=== PATIENT | female | born 1985 | race Caucasian/White ===

== ENCOUNTER 2017-01-03 12:18 | Observation (INO) ==
[~2017-01-03 12:18] MED LIST: LIDOCAINE 2% 5 ML VIAL ONE; PROPOFOL 200 MG/20 ML VIAL IV ONE
[2017-01-03] MEDS ORDERED: HYDROmorphone 2 MG/1 ML VIAL ONE (12:29)
[2017-01-03] MEDS ORDERED: ONDANSETRON 4 MG/2 ML VIAL ONE ×2 (12:29→13:18)
[2017-01-03] MEDS ORDERED: HYDROmorphone 2 MG/1 ML VIAL IV STA (12:32)
[2017-01-03] MEDS ORDERED: ONDANSETRON 4 MG/2 ML VIAL IV STA ×2 (12:32→13:36)
--- NOTE | 2017-01-03 12:35 | Emergency Department Note ---
Josse Gray Brittany, am scribing for, and in the presence of, Giana Rendon DO 12:33. Justice Gray Debra, DO, personally performed the services described in this documentation, ascribed by Teresita Loaiza in my presence, and it is both accurate and complete . Arrival - Arrival Chief Complaint: Extremity Injury Stated Complaint: left ankle injury ED Nursing Triage Note: C/o left ankle pain-onset appx 45 mins earlier. Slipped while walking to the [facility]. Obvious deformity noted to left ankle. Faint pulse palpated. 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 Patient reports that she was heading down a hill to get into the [facility] when she slipped in some mud, injuring her left ankle. Patient states that she has felt some numbness and noticed some cyanosis to the left foot while riding in the car en route to the ED. In room patient has pink color with mild ecchymosis to the left foot, faint pulses palpated, good capillary refill, tender to palpation, and has some obvious swelling. Patient has no other complaint/pain in the ED. Date of Last Menstrual Period: Mirena Allergies/Adverse Reactions: Allergies Allergy/AdvReac Type Severity Reaction Status Date / Time Penicillins Allergy Unknown/Unable Unverified 01/03/17 12:23 to obtain Home Medications: Home Medications Medication Instructions Recorded Confirmed Type No Known Home Medications [No 01/03/17 01/03/17 History Known Home Medications] Review of System - Review of System 12 point system: reviewed and no additional remarkable complaints except as stated - Review of System Musculoskeletal: Present: as per HPI, joint swelling, leg pain Medical,Surgical,& Family Hx - Social History Smoking Status: Never smoker Frequency of Alcohol Use: None Type of Drug Use: None Exam Vital Signs: Vital Signs Temperature 98.2 F 01/03/17 12:19 Pulse Rate 104 H 01/03/17 12:19 Respiratory Rate 18 01/03/17 12:19 Blood Pressure 141/82 01/03/17 12:19 O2 Sat by Pulse Oximetry 99 01/03/17 12:19 - General General appearance: alert, in no apparent distress, obese - Head Head exam: Present: atraumatic, normocephalic, normal inspection - Eye Eye exam: Present: normal appearance, PERRL, EOMI - ENT ENT exam: Present: normal exam, normal oropharynx - Neck Neck exam: Present: normal inspection, full ROM, trachea midline - Chest Chest inspection: Present: normal inspection, symmetric chest wall rise - Respiratory Respiratory exam: Present: normal lung sounds bilaterally. Absent: rales, rhonchi, wheezes - Cardiovascular Cardiovascular exam: Present: regular rate, normal rhythm, normal heart sounds. Absent: murmur, rubs, gallop - Abdominal Exam Abdominal exam: Present: soft, normal bowel sounds. Absent: distention, tenderness - Extremities Exam Extremities exam: Present: tenderness (tender left ankle), normal capillary refill (good capillary refill noted to left toes), joint swelling (left ankle). Absent: normal inspection (diffuse swelling, mild ecchymosis, and faint pulse noted to left foot), full ROM (limited ROM to left ankle secondary to pain) - Back Exam Back exam: Present: normal inspection - Neurological Exam Neurological exam: Present: alert, oriented X3, CN II-XII intact. Absent: motor sensory deficit - Psychiatric Psychiatric exam: Present: normal affect, normal mood - Skin Skin exam: Present: warm, dry Results - Labs Lab Results: I have reviewed the patients labs Labs: Laboratory Tests 01/03/17 14:14 Serum , Qual Negative - Diagnostic Findings Procedure: Ultrasound: report reviewed by me (Arterial Duplex US: Limited arterial doppler evaluation demonstrates flow within the anterior tibial and dorsalis pedis vessels.), X-ray: report reviewed by me (Ankle: There is an acute mildly comminuted fracture of the distal fibula. There is also widening at the tibiotalar joint of the ankle, compatible with dislocatoin/soft tissue injury. Surrounding soft tissue swelling is noted about the distal lower leg/ ankle. No additional fractures identified.)
--- NOTE | 2017-01-03 13:09 | XRay Report ---
XR ankle 3V LT Clinical Information: ankle injury, Pain Comparison: None Findings: There is an acute mildly comminuted fracture of the distal fibula. There is also widening at the tibiotalar joint of the ankle, compatible with dislocation/soft tissue injury. Surrounding soft tissue swelling is noted about the distal lower leg/ankle. No additional fractures are identified. Impression: As above. PROCEDURE INTERPRETED AT [facility] DEPARTMENT OF RADIOLOGY Final Report Signed by: Yuri Morgan
[2017-01-03] MEDS ORDERED: MORPHINE 2 MG/1 ML SYRINGE ONE (13:18)
[2017-01-03] MEDS ORDERED: MORPHINE 2 MG/1 ML SYRINGE IV STA (13:36)
[2017-01-03] MEDS ORDERED: SODIUM CHLORIDE 0.9% 1,000 ML IV STA (13:37)
--- NOTE | 2017-01-03 14:09 | Ultrasound Report ---
US arterial duplex LE Clinical Information: left calf tenderness, questionable weak pulses on physical examination with left ankle fractures Comparison: None available Findings: Grayscale, color Doppler and spectral analysis of the left dorsalis pedis, anterior tibial and posterior tibial arteries at the left lower leg demonstrate a biphasic or weakly triphasic waveform. There are no vascular occlusions visualized. Impression: Limited arterial Doppler evaluation demonstrates flow within the anterior tibial and dorsalis pedis vessels. PROCEDURE INTERPRETED AT [facility] DEPARTMENT OF RADIOLOGY Final Report Signed by: Yuri Morgan
--- NOTE | 2017-01-03 14:13 | Orthopedic History & Physical ---
Assessment and Plan (1) Syndesmotic disruption of left ankle Status: Acute Assessment and plan: Discussed interested in her family in detail today including but the fibular fracture and syndesmosis disruption with resulting ankle subluxation. I have recommended open reduction internal fixation of the fracture and fixation of the syndesmosis. Perioperative postoperative care including restricted weightbearing were discussed. We also discussed the necessity for hardware removal for the syndesmosis disruption. Risks, alternatives, and benefits to undergoing this procedure were discussed in great detail, the patient voiced understanding desire proceed. Risks discussed included, but were not limited to, bleeding, infection, damage to arteries and nerves, nonunion, malunion, need for revision surgery, as well as medical complications. Current Visit: Yes Qualifiers: Encounter type: initial encounter Qualified Code(s): S93.432A - Sprain of tibiofibular ligament of left ankle, initial encounter (2) Fibula fracture Status: Acute Assessment and plan: See above Current Visit: Yes Qualifiers: Encounter type: initial encounter Fibula location: shaft Fracture type: closed Fracture morphology: comminuted Fracture alignment: displaced Laterality: left Qualified Code(s): S82.452A - Displaced comminuted fracture of shaft of left fibula, initial encounter for closed fracture History of Present Illness Chief complaint: Left ankle injury History of present illness: 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 She injured her left ankle earlier today when she was attempting to get into a [employer] and slipped. She had immediate pain was brought here in the emergency department for evaluation. She does not have an ankle fracture dislocation, I was consult for management. She only complains of pain in the left ankle. Home Medications Medication Instructions Recorded Confirmed Type No Known Home Medications [No 01/03/17 01/03/17 History Known Home Medications] Allergies Allergy/AdvReac Type Severity Reaction Status Date / Time Penicillins Allergy Unknown/Unable Unverified 01/03/17 12:23 to obtain 12 point system: reviewed and no additional remarkable complaints except as stated Medical,Surgical,& Family Hx - Social History Smoking Status: Never smoker Frequency of Alcohol Use: None Type of Drug Use: None Exam - Constitutional Vitals: Period Temp Pulse Resp BP Sys/Vazquez Pulse Ox Last 24 Hr 98.2 F-98.2 F 104-104 18-18 141-141/82-82 99 Exam: General appearance: no acute distress Head exam: normal inspection Eye exam: EOMI Neck exam: normal inspection Respiratory exam: clear to auscultation bilaterally Cardiovascular exam: regular GI/Abdominal exam: normal bowel sounds Left lower extremity: Swelling ankle is noted, no obvious deformity. She can wiggle her toes. She is sensate throughout the foot. She has a 1+ dorsalis pedis pulse. Results - Diagnostic Findings Procedure: X-ray: image reviewed by me (Radiographs left ankle show a fibular shaft fracture with widening of the syndesmosis subluxation of the tibiotalar joint)
[2017-01-03] MEDS ORDERED: CLINDAMYCIN INJ 900 MG in PREMIX 1 EACH IV ONE (14:14)
[2017-01-03] MEDS ORDERED: ACETAMINOPHEN 500 MG TABLET PO STA (14:15)
[2017-01-03] MEDS ORDERED: GABAPENTIN 100 MG CAPSULE ONE (14:23)
[2017-01-03] MEDS ORDERED: CLINDAMYCIN INJ 50 ML IV ONE (14:23)
[2017-01-03] MEDS ORDERED: GABAPENTIN 300 MG CAPSULE ONE (14:23)
[2017-01-03] MEDS ORDERED: ACETAMINOPHEN 500 MG TABLET ONE (14:24)
[2017-01-03] MEDS ORDERED: ROPIVACAINE 0.5% 30 ML VIAL ONE (14:27)
[2017-01-03] MEDS ORDERED: GABAPENTIN 400 MG CAPSULE PO SCH (14:30)
[2017-01-03] MEDS ORDERED: ACETAMINOPHEN 325 MG TABLET PO PRN (16:14)
[2017-01-03] MEDS ORDERED: NALOXONE 0.4 MG/ML VIAL IV PRN (16:14)
[2017-01-03] MEDS ORDERED: MORPHINE PCA 30 MG/30 ML SYRINGE IV SCH (16:30)
[2017-01-03] MEDS ORDERED: LACTATED RINGERS 500 ML BAG IV ONE (16:49)
[2017-01-03] MEDS ORDERED: SEVOFLURANE 1 UNIT/15 MINUTE INH ONE (16:49)
[2017-01-03] MEDS ORDERED: fentaNYL 100 MCG/2 ML VIAL ONE (16:49)
[2017-01-03] MEDS ORDERED: MIDAZOLAM 2 MG/2 ML VIAL ONE (16:49)
[2017-01-03] MEDS ORDERED: ONDANSETRON 4 MG/2 ML VIAL IV PRN (17:02)
[2017-01-03] MEDS: HYDROmorphone 2 MG/1 ML VIAL IV PRN ×2 (17:05→17:10)
--- NOTE | 2017-01-03 17:37 | XRay Report ---
XR ankle 3V LT Clinical Information: ORIF LT ANKLE, Dr. Wolf Total fluoroscopy time 28.7 seconds Comparison: None Findings: Orthopedic plate and screw hardware is noted within the distal fibula/tibia fibular joint. Images were evaluated by the attending surgeon at the time of the procedure. Impression: Intraoperative fluoroscopy as detailed above. PROCEDURE INTERPRETED AT [facility] DEPARTMENT OF RADIOLOGY Final Report Signed by: Yuri Morgan
[2017-01-03] MEDS ORDERED: KETOROLAC 15 MG/1 ML VIAL IV PRN (18:30)
--- NOTE | 2017-01-03 19:51 | Anesthesia Post-Op ---
Anesthesia Post OP - Post Ansesthetic Evaluation Patient seen in post op: Yes Resp: within normal limits CV: within normal limits Mental: within normal limits Temp: within normal limits Adpo-Ym-Uhxsewghl: within normal limits Nausea and Vomiting: within normal limits Pain: within normal limits
[2017-01-03] MEDS: CLINDAMYCIN INJ 900 MG in PREMIX 1 EACH IV SCH (23:03)
[2017-01-04 05:27] LABS: Basophils % 0.4 % (0.0-0.8); Eosinophils # 0.3 10*3/uL (0.0-0.87); Eosinophils % 2.7 % (0.00-10.9); Hematocrit 37.8 VOL% (35.7-47.0); Hemoglobin 12.5 GM/DL (12.0-16.0); Immature Granulocytes % 0.2 %; Immature Granulocytes Absolute 0.02 #; Lymphocytes # 3.2 10*3/uL (1.4-4.0); Lymphocytes % 30.5 % (21.3-54.2); Mean Corpuscular HGB Conc 33.1 GM/DL (32-36); Mean Corpuscular Hemoglobin 31 PG (27-34); Monocytes # 0.7 10*3/uL (0.11-0.8); Monocytes % 6.7 % (1.7-12.7); Neutrophils # 6.2 10*3/uL (1.4-7.4); Neutrophils % 59.5 % (38.7-73.9); Platelet Count 226 T/CUMM (130-400); Red Blood Count 3.98 MC/CUMM (3.8-5.5); Red Cell Distribution Width 12.1 % (9.3-17.3); White Blood Count 10.4 T/CUMM (4-12)
[2017-01-04] MEDS: CLINDAMYCIN INJ 900 MG in PREMIX 1 EACH IV SCH (06:04)
[2017-01-04 06:05] LABS: Calcium 7.9 MG/DL (8.5-10.1); Osmolality,Calculated 276.4 MOS/KG (273-304)
--- NOTE | 2017-01-04 06:51 | Discharge Summary ---
Hospital Course - Hospital Course Hospital Course: 31-year-old female admitted to hospital after undergoing fixation of a left ankle fracture dislocation. She tolerated procedure was transferred for stable condition postoperatively. She received routine antibiotics and thromboprophylaxis. After therapy she was discharged on postop day #1. Time of discharge her dressings clean and dry she is neurovascular intact in the foot. Diagnosis - Discharge Diagnosis (1) Syndesmotic disruption of left ankle Status: Acute (2) Fibula fracture Status: Acute Specialty Discharge - Follow Up or Referrals Follow up with: Ramin Wolf MD [Physician] - 2 Weeks Discharge Plan - Discharge Data Disposition: Disch To Home/Self Care Condition at Discharge: Stable Discharge Diet: advance to your usual diet Activity: ambulate only with your walker Hygiene: keep area(s) dry Weight Bearing at Discharge: non-weight bearing Driving: not until seen by doctor Contact your physician if you experience:: fever over 101, Difficulty voiding, Redness or swelling, Nausea/Vomiting, Shortness of breath, Bleeding, pain uncontrolled by pain medications Wound / Dressing Care Instructions: Keep splint clean and dry - Discharge Medications New HYDROcodone/ACETAMIN 7.5-325 [[place] 7.5-325] 1 - 2 tablet PO Q4H PRN #60 tablet PRN Reason: Pain Moderate (4-7) - Follow Up or Referral Follow Up: Ramin Wolf MD [Physician] - 2 Weeks - Forms/Instructions Additional Discharge Instructions: Strict nonweightbearing left lower extremity. Elevate and ice left lower extremity Exam - Constitutional Vitals: Period Temp Pulse Resp BP Sys/Vazquez Pulse Ox Last 24 Hr 98.1 F-99.2 F 86-121 14-24 106-178/59-92 97-100 Discharge Results Labs on day of discharge: Labs from last 24 hours 01/04/17 01/04/17 01/03/17 04:33 04:33 14:14 WBC 10.4 RBC 3.98 Hgb 12.5 Hct 37.8 MCV 95.0 MCH 31 MCHC 33.1 RDW 12.1 Plt Count 226 MPV 9.0 L Neut % (Auto) 59.5 Lymph % (Auto) 30.5 [place] % (Auto) 6.7 Eos % (Auto) 2.7 Baso % (Auto) 0.4 Neut # (Auto) 6.2 Lymph # (Auto) 3.2 [place] # (Auto) 0.7 Eos # (Auto) 0.3 Baso # (Auto) 0.0 Immature Gran % 0.2 Nucleated RBC % 0.0 Immature Gran # 0.02 Nucleated RBCs # 0.00 Sodium 140 Potassium 4.0 Chloride 105 Carbon Dioxide 27 Anion Gap 12.0 BUN 7 Creatinine 0.80 GFR Calculation 125 BUN/Creatinine Ratio 8.00 Glucose 98 Calculated Osmolality 276.4 Calcium 7.9 L Serum , Qual Negative DS: Provider Primary care physician: Nonstaff Physician Consults: 01/03/17 16:14 Consult to Physical Therapy [CONS] Routine Reason for Physical Therapy: Evaluate and Treat Start Therapy: Tomorrow Consult Comment: shantel ALVARENGA Discharging clinician: Ramin Wolf MD
[2017-01-04 08:15] VITALS: BP 125/70
[2017-01-04] MEDS ORDERED: ENOXAPARIN 40 MG/0.4 ML SYRINGE SUBCUT SCH (09:00)
== END 2017-01-04 10:30 | disposition home or self-care (01) ==
LOC: EDBD → EDUNIT# → N.ED 12:18 → N.5E 16:11 → INTOOBSV 16:11 → N.5E 17:40
PROVIDERS: ADMIT Orthopaedic Surgery; ATTEND Orthopaedic Surgery

== ENCOUNTER 2019-12-16 15:12 | Inpatient (IN) ==
[2019-12-16] MEDS ORDERED: LACTATED RINGERS 250 ML IV ONE (15:22)
[2019-12-16] MEDS ORDERED: LACTATED RINGERS 500 ML IV PRN (15:22)
[2019-12-16] MEDS ORDERED: LACTATED RINGERS 1,000 ML IV SCH (15:30)
[2019-12-16 15:51] LABS: Basophils % 0.3 % (0.0-0.8); Eosinophils # 0.1 10*3/uL (0.0-0.87); Eosinophils % 1.2 % (0.00-10.9); Hematocrit 37.6 VOL% (35.7-47.0); Hemoglobin 12.6 GM/DL (12.0-16.0); Immature Granulocytes % 0.3 %; Immature Granulocytes Absolute 0.03 #; Lymphocytes # 2.2 10*3/uL (1.4-4.0); Mean Corpuscular HGB Conc 33.5 GM/DL (32-36); Mean Corpuscular Volume 92.8 FL (87-102); Mean Platelet Volume 9.3 FL (9.6-12.0); Monocytes % 5.7 % (1.7-12.7); Neutrophils % 72.5 % (38.7-73.9); Platelet Count 218 T/CUMM (130-400); Red Blood Count 4.05 MC/CUMM (3.8-5.5); Red Cell Distribution Width 13.3 % (9.3-17.3); White Blood Count 11.2 T/CUMM (4-12)
[2019-12-16 16:13] LABS: Alanine Aminotransferase 16 U/L (13-56); Albumin 2.4 G/DL (3.4-5.0); Alkaline Phosphatase 162 U/L (45-117); Aspartate Amino Transferase 13 U/L (0-37); Bilirubin,Total < 0.39 MG/DL (0.2-1.0); Blood Urea Nitrogen 7 MG/DL (7-18); Calcium 9.4 MG/DL (8.5-10.1); Estimated Glom Filtration Rate 172 ML/MIN; Glucose 79 MG/DL (74-106); Osmolality,Calculated 273.5 MOS/KG (273-304); Total Protein 6.7 G/DL (6.4-8.3)
[2019-12-16] MEDS ORDERED: ZALEPLON 5 MG CAPSULE PO PRN (16:29)
[2019-12-16 16:42] LABS: INR 0.9; Partial Thromboplastin Time 25.8 SECS (23.9-33.8)
[2019-12-16] MEDS ORDERED: LABETALOL 100 MG TABLET ONE (17:52)
[2019-12-16] MEDS: LABETALOL 200 MG TABLET PO SCH (17:54)
[2019-12-16] MEDS: CLINDAMYCIN INJ 900 MG in PREMIX 1 EACH IV SCH (23:38)
[2019-12-17] MEDS: LABETALOL 200 MG TABLET PO SCH ×3 (02:05→16:14)
[2019-12-17] MEDS ORDERED: BUTORPHANOL 1 MG/ML VIAL ONE (02:09)
[2019-12-17] MEDS: BUTORPHANOL 1 MG/ML VIAL IV PRN ×2 (02:19→08:20)
[2019-12-17] MEDS: ONDANSETRON 4 MG/2 ML VIAL IV PRN ×2 (02:19→08:21)
[2019-12-17] MEDS ORDERED: CLINDAMYCIN INJ 900 MG in PREMIX 1 EACH IV SCH (04:00)
[2019-12-17] MEDS: CLINDAMYCIN INJ 900 MG in PREMIX 1 EACH IV SCH (07:57)
[2019-12-17] MEDS ORDERED: PROMETHAZINE 25 MG/1 ML VIAL IM ONE (09:26)
[2019-12-17] MEDS ORDERED: FAMOTIDINE 20 MG/2 ML VIAL IV ONE (09:26)
[2019-12-17] MEDS ORDERED: ePHEDrine 50 MG/ML AMP IV PRN (09:26)
[2019-12-17] MEDS ORDERED: LACTATED RINGERS 1,000 ML IV ONE (09:26)
[2019-12-17] MEDS ORDERED: NALOXONE 0.4 MG/ML VIAL IV PRN (09:26)
[2019-12-17] MEDS ORDERED: CITRIC ACID/SODIUM CITRATE 30 ML UDCUP PO ONE (09:26)
[2019-12-17] MEDS ORDERED: fentaNYL 2 MCG/ROPIV 0.2% EPID 100 ML EPIDURAL SCH (09:30)
[2019-12-17] MEDS ORDERED: OXYTOCIN/LR 20 UNIT/1,000 ML BAG IV SCH (09:30)
[2019-12-17 11:49] LABS: Apearance,Urine CLEAR (Clear); Bilirubin,Urine Negative (Negative); Blood, Urine Large mg/dL (Negative); Glucose,Urine (UA) Negative (Negative); Ketones,Urine Negative (Negative); Mucus,Urine Occasional /LPF (Occasional); Nitrite,Urine Negative (Negative); Protein,Urine 30 MG/DL; RBC,Urine 525 /HPF (0-4); Squamous Epithelial Cell,Urine Occasional /HPF (0-10); Urine Color Yellow (Yellow); Urine Urobilinogen < 2.0 EU/DL (0.2-1.0); WBC,Urine 36 /HPF (0-6)
[2019-12-17] MEDS ORDERED: METHYLERGONOVINE 0.2 MG/1 ML AMP ONE (12:35)
[2019-12-17] MEDS ORDERED: CARBOPROST TROMETHAMINE 250 MCG/ML AMP IM ONE (12:35)
[2019-12-17] MEDS ORDERED: OXYTOCIN/LR 20 UNIT/1,000 ML BAG IV ONE ×2 (12:35→13:20)
[2019-12-17] MEDS ORDERED: miSOPROStoL 200 MCG TABLET ONE (12:35)
[2019-12-17] MEDS ORDERED: LIDOCAINE 1% 50 ML VIAL ONE (12:35)
[2019-12-17] MEDS ORDERED: BISACODYL 10 MG SUPP RECTAL PRN (13:20)
[2019-12-17] MEDS ORDERED: RHO(D) IMMUNE GLOBULIN 300 MCG SYRINGE IM ONE (13:20)
[2019-12-17] MEDS ORDERED: ACETAMINOPHEN 325 MG TABLET PO PRN (13:20)
[2019-12-17] MEDS ORDERED: HYDROCORTISONE 2.5% RECTAL CREAM 30 GM TUBE TOP PRN (13:20)
[2019-12-17] MEDS ORDERED: MEASLES/MUMPS/RUBELLA VACCINE 0.5 ML VIAL SUBCUT ONE (13:20)
[2019-12-17] MEDS ORDERED: ONDANSETRON 4 MG/2 ML VIAL IV PRN (13:20)
[2019-12-17] MEDS ORDERED: LANOLIN 50% CREAM 0.3 OZ TUBE TOP PRN (13:20)
[2019-12-17] MEDS ORDERED: DIPH/TET/ACEL PERT BOOSTER VACCINE 0.5 ML VIAL IM ONE (13:20)
[2019-12-17] MEDS ORDERED: oxyCODONE/ACETAMINOPHEN 5-325 MG TABLET PO PRN (13:20)
[2019-12-17] MEDS ORDERED: WITCH HAZEL PADS 100/JAR TOP PRN (13:20)
[2019-12-17] MEDS ORDERED: BENZOCAINE 20%/MENTHOL 0.5% SPRAY 56 GM CAN TOP PRN (13:20)
[2019-12-17] MEDS ORDERED: LABETALOL 200 MG TABLET ONE (16:13)
[2019-12-17] MEDS: IBUPROFEN 800 MG TABLET PO PRN (17:33)
[2019-12-17] MEDS: DOCUSATE SODIUM 100 MG CAPSULE PO SCH (21:15)
[2019-12-18] MEDS: LABETALOL 200 MG TABLET PO SCH ×3 (00:16→20:56)
[2019-12-18] MEDS: IBUPROFEN 800 MG TABLET PO PRN ×4 (00:16→18:00)
[2019-12-18] MEDS: oxyCODONE/ACETAMINOPHEN 5-325 MG TABLET PO PRN ×2 (00:19→18:00)
[2019-12-18 06:23] LABS: Basophils % 0.2 % (0.0-0.8); Eosinophils # 0.1 10*3/uL (0.0-0.87); Eosinophils % 1.1 % (0.00-10.9); Hematocrit 32.2 VOL% (35.7-47.0); Hemoglobin 10.8 GM/DL (12.0-16.0); Immature Granulocytes % 0.5 %; Immature Granulocytes Absolute 0.06 #; Lymphocytes # 2.8 10*3/uL (1.4-4.0); Lymphocytes % 22.1 % (21.3-54.2); Mean Corpuscular HGB Conc 33.5 GM/DL (32-36); Mean Platelet Volume 9.6 FL (9.6-12.0); Monocytes % 8.2 % (1.7-12.7); Neutrophils % 67.9 % (38.7-73.9); Platelet Count 192 T/CUMM (130-400); Red Blood Count 3.39 MC/CUMM (3.8-5.5); Red Cell Distribution Width 13.4 % (9.3-17.3); White Blood Count 12.8 T/CUMM (4-12)
[2019-12-18] MEDS: DOCUSATE SODIUM 100 MG CAPSULE PO SCH ×2 (08:00→20:56)
[2019-12-19] MEDS: oxyCODONE/ACETAMINOPHEN 5-325 MG TABLET PO PRN ×2 (04:24→10:09)
[2019-12-19] MEDS: IBUPROFEN 800 MG TABLET PO PRN ×2 (04:24→10:09)
[2019-12-19 08:08] VITALS: BP 147/80
[2019-12-19] MEDS: LABETALOL 200 MG TABLET PO SCH (10:09)
[2019-12-19] MEDS: DOCUSATE SODIUM 100 MG CAPSULE PO SCH (10:09)
== END 2019-12-19 11:05 | disposition home or self-care (01) | DRG 807 ==
LOC: N.NUOP 15:12 → N.LD 15:17 → N.OB 12-18 07:40
PROVIDERS: ADMIT Specialist; ATTEND Specialist